=== PATIENT | female | born 1930 | race Caucasian/White ===

== ENCOUNTER 2018-10-04 08:22 | Day surgery (SDC) | payer OTHER ==
--- NOTE | 2018-09-26 09:35 | HP ---
DATE OF ADMISSION: 10/04/2018 DATE OF DICTATION: 09/12/2018 Patient to be admitted to the hospital at [facility] for gallbladder surgery in the near future; date to be determined. HISTORY: This is an 88-year-old woman who for quite some time now has been experiencing intermittent bouts of right upper quadrant pain radiating to her right flank and right back. This has also been associated with nausea and vomiting. Some of the attacks have been associated with significant discomfort. Recent workup by the medical service has included an ultrasound of the abdomen which has demonstrated small stones layering posteriorly in the gallbladder. With that history, she was sent for my evaluation and for consideration for cholecystectomy. On close questioning, the patient consumes rather fatty food on a regular basis. It is difficult for her to ascertain whether fatty foods contribute to her symptoms, but her symptoms are quite frequent. There has been no unintentional weight loss. There has been no history of jaundice. There is no family history of biliary disease. PAST MEDICAL HISTORY: Significant for hypertension, hypercholesterolemia, and diabetes. No known history of heart disease, respiratory or hepatic insufficiency. PAST SURGICAL HISTORY: Nil. ALLERGIES: None known. REGULAR MEDICATIONS: Multiple. Patient cannot recall names. SOCIAL HISTORY: Negative tobacco. Negative alcohol. Patient is quite active for her age. FAMILY HISTORY AND REVIEW OF SYSTEMS: Nil otherwise. PHYSICAL EXAMINATION: Abdomen: Soft, nontender, with no palpable findings. IMPRESSION: Chronic cholecystitis/symptomatic cholelithiasis. PLAN: Spoke at length with patient and her daughter. She is 88 years old, and this intervention does require general anesthetic. Nonetheless, she states that some of the attacks are rather severe, and she has strongly opted to move in the direction of surgical management. In terms of her back discomfort, I cannot be absolutely certain that her complaint of back pain is all related to her biliary tract. Nonetheless, have agreed to proceed with laparoscopic cholecystectomy. Indications, alternatives, possible complications reviewed. Consent obtained. Patient to be seen preoperatively by Dr. Fer Villanueva. Please refer to his notes for those medical details. SHEILA OSORIO M.D. [id number] cc: Fer Villanueva MD
[2018-10-03 14:34] VITALS: BMI 22.3
[2018-10-04] MEDS ORDERED: ERTAPENEM SODIUM 1 GM VIAL ONE (09:21)
[2018-10-04] MEDS ORDERED: PROPOFOL 20 ML ONE (10:20)
[2018-10-04] MEDS ORDERED: ROCURONIUM BROMIDE 50 MG/5 ML VIAL ONE (10:20)
[2018-10-04] MEDS ORDERED: ERTAPENEM SODIUM 1 GM VIAL IVPB ONE (10:31)
[2018-10-04] MEDS ORDERED: LABETALOL HCL 5 MG/1 ML (100MG/20 ML VIAL) ONE (10:44)
[2018-10-04] MEDS ORDERED: GLYCOPYRROLATE 0.2 MG/1 ML VIAL ONE (10:57)
[2018-10-04] MEDS ORDERED: NEOSTIGMINE METHYLSULFATE 0.5 MG/ML - 10 ML MDV ONE (10:57)
[2018-10-04] MEDS: LABETALOL HCL 5 MG/1 ML (100MG/20 ML VIAL) IVPUSH PRN ×3 (11:25→12:35)
[2018-10-04] MEDS ORDERED: MECLIZINE HCL 12.5 MG TABLET PO SCH (13:45)
[2018-10-04] MEDS ORDERED: D5-1/2NS+20 MEQ KCL - 20 MEQ/1,000 ML INFUS.BAG IV SCH (13:45)
[2018-10-04] MEDS ORDERED: ACETAMINOPHEN 325 MG TABLET (FP) PO PRN (13:45)
[2018-10-04] MEDS ORDERED: morphine SULFATE 4 MG/ML VIAL IVPB PRN (13:45)
[2018-10-04] MEDS ORDERED: ONDANSETRON 4 MG/2 ML VIAL IVPUSH PRN (15:46)
[2018-10-04] MEDS ORDERED: LACTATED RINGERS SOLUTION 1,000 ML IV SCH (16:00)
--- NOTE | 2018-10-04 18:12 | OP ---
DATE OF OPERATION: 10/04/2018 PREOPERATIVE DIAGNOSIS: Chronic cholecystitis/cholelithiasis. POSTOPERATIVE DIAGNOSIS: Chronic cholecystitis/cholelithiasis. PROCEDURE: Laparoscopic cholecystectomy. OPERATING SURGEON: Kit Ortiz M.D. STEREO EQUIPMENT INSTALLER: Faraz Elena M.D. ANESTHESIA: Pilar Busch M.D. (general) HISTORY: An 88-year-old woman who presents for laparoscopic removal of her gallbladder as management of symptomatic cholelithiasis. Indications, alternatives, possible complications reviewed. Consent obtained. DESCRIPTION OF PROCEDURE: With the patient in the supine position, under general anesthesia, the abdomen was prepped and draped in sterile fashion using chlorhexidine. A small umbilical incision was made through which a Veress needle was placed into the abdominal cavity. The abdominal cavity was insufflated to an adequate pressure and volume using CO2 gas. Veress needle was removed. An 11-mm trocar port placed through the infraumbilical wound. The camera lens passed through this port, and the intraabdominal cavity visualized. Under direct vision, two 5-mm right anterolateral ports were placed through which clamps were passed to maintain traction on the gallbladder and aid in the dissection. An 11-mm port was placed in the epigastrium, through which the operating instruments were passed. Limited exploration of the abdomen revealed no significant findings other than some adhesions about the gallbladder. These were taken down under direct vision, exposing the entire gallbladder and hepatoduodenal ligament. The peritoneum and hepatoduodenal ligament was incised. The cystic duct was identified. The cystic duct/bile duct junction noted. The cystic duct was clipped proximally and distally and divided. The adjacent artery was managed similarly. The gallbladder was then removed from the gallbladder bed, lysing its attachment to the liver. It was ultimately freed. Adequate hemostasis was secured at the level of the liver bed. All ports were removed under direct vision. No bleeding identified. Ultimately, the gallbladder was passed and delivered through the infraumbilical wound without difficulty. The pneumoperitoneum was allowed to escape. The fascia at the infraumbilical port site was closed using interrupted 0 Vicryl sutures. All skin wounds were closed using subcuticular 4-0 Biosyn sutures. Needle, instrument counts were correct. Estimated blood loss minimal. Specimen gallbladder. Drains none. Patient tolerated procedure. Procedure was terminated. Debbie DAVIS/[id number] MTDD
[2018-10-04] MEDS: INSULIN SLIDING SCALE (NOVOLOG) 1 VIAL SQ SCH ×2 (18:39→21:41)
[2018-10-04] MEDS ORDERED: INSULIN (NOVOLOG) ASPART 100 UNITS/ML 10ML VIAL ONE (18:41)
[2018-10-04] MEDS ORDERED: ATORVASTATIN CA 20 MG TABLET (FP) PO SCH (22:00)
[2018-10-05] MEDS ORDERED: MECLIZINE HCL 12.5 MG TABLET PO PRN (02:47)
[2018-10-05] MEDS: INSULIN SLIDING SCALE (NOVOLOG) 1 VIAL SQ SCH ×2 (06:18→11:18)
[2018-10-05] MEDS ORDERED: INSULIN (NOVOLOG MIX 70/30) 100 UNITS/ML MDV SQ SCH (07:00)
[2018-10-05] MEDS ORDERED: MIDAZOLAM HCL 2 MG/2 ML SINGLE DOSE VIAL ONE (08:39)
--- NOTE | 2018-10-05 09:21 | PN ---
Progress Note (short form) - Note Progress Note: ANESTHESIOLOGY POST-OP CHECK 88F s/p laparoscopic cholecystectomy under general anesthesia, POD #1. No acute complaints, no acute events. [employer] phone not working. Vital Signs Temperature 98.9 F 10/05/18 06:58 Pulse Rate 95 H 10/05/18 06:58 Respiratory Rate 21 H 10/05/18 06:58 Blood Pressure 142/63 10/05/18 06:58 O2 Sat by Pulse Oximetry (%) 97 10/04/18 17:43 Active Medications Acetaminophen (Tylenol -) 650 mg PO Q4H PRN PRN Reason: FEVER Atorvastatin Calcium (Lipitor -) 20 mg PO HS [facility] Last Admin: 10/04/18 21:42 Dose: 20 mg Enoxaparin Sodium (Lovenox -) 40 mg SQ DAILY [facility] Potassium Chloride/Dextrose/Sod Cl (D5-1/2ns+20 Meq Kcl -) 20 meq in 1,000 mls @ 83 mls/hr IV ASDIR [facility] Last Admin: 10/04/18 15:00 Dose: 0 mls Lactated Ringer's (Lactated Ringers Solution) 1,000 mls @ 75 mls/hr IV ASDIR [facility] Last Admin: 10/04/18 19:45 Dose: 75 mls/hr Insulin Aspart (Novolog Mix 70/30 Vial) 30 units SQ BIDAC [facility] Last Admin: 10/05/18 06:18 Dose: 30 units Insulin Aspart (Novolog Vial Sliding Scale -) 1 vial SQ ACHS [facility]; Protocol Last Admin: 10/05/18 06:18 Dose: 2 units Labetalol HCl (Normodyne Injection -) 10 mg IVPUSH [id number] PRN PRN Reason: HYPERTENSION Last Admin: 10/04/18 12:35 Dose: 10 mg Lisinopril (Prinivil) 2.5 mg PO DAILY [facility] Meclizine HCl (Antivert -) 12.5 mg PO Q8H PRN PRN Reason: VERTIGO Montelukast Sodium (Singulair -) 10 mg PO HS [facility] Morphine Sulfate (Morphine Sulfate) 4 mg IVPB Q3H PRN PRN Reason: PAIN LEVEL 7 - 10 Last Admin: 10/04/18 18:39 Dose: 4 mg Ondansetron HCl (Zofran Injection) 4 mg IVPUSH Q6H PRN PRN Reason: NAUSEA AND/OR VOMITING Pantoprazole Sodium (Protonix Iv) 40 mg IVPUSH DAILY [facility] Gen: Awake, alert, NAD No apparent anesthesia complications. -Pain controlled -continue antiemetics PRN -encourage ambulation -Continue management as per primary team.
[2018-10-05] MEDS ORDERED: LISINOPRIL 5 MG TABLET (FP) PO SCH (10:00)
[2018-10-05] MEDS ORDERED: ENOXAPARIN NA (PORCINE) 40 MG/0.4 ML DISP.SYRIN SQ SCH (10:00)
[2018-10-05] MEDS ORDERED: PANTOPRAZOLE SODIUM 40 MG VIAL IVPUSH SCH (10:00)
--- NOTE | 2018-10-05 10:57 | PN ---
Progress Note (short form) - Note Progress Note: surgery pt had one fever this morning per nurse. ambulating, voiding, tolerating diet. fever likely from atelectasis. if no further fever will d/c home this evening.
[2018-10-05 14:00] VITALS: BP 124/49; PULSE 93; TEMP 99.5
[2018-10-05] MEDS ORDERED: MONTELUKAST NA 10 MG TABLET PO SCH (22:00)
--- NOTE | 2018-10-09 10:13 | PATH ---
Surgical Pathology Report Patient Name: [facility]. Rec. #: [id number] /Age/Gender: 1930 (Age: 88) / F Account: [id number] Location: AMBULATORY SURG Taken: 10/04/2018 Received: 10/04/2018 Reported: 10/09/2018 Physicians: Kit Ortiz M.D. Specimen(s) Received GALLBLADDER Clinical History Calculus of gallbladder with acute cholecystectomy Final Diagnosis GALLBLADDER, LAPAROSCOPIC CHOLECYSTECTOMY: CHRONIC CHOLECYSTITIS, POLYPOID CHRONICALLY INFLAMED GALLBLADDER MUCOSA CONSISTENT WITH INFLAMMATORY POLYP, AND CHOLELITHIASIS. Electronically Signed Evelyne Titus M.D. Gross Description Received in formalin, labeled "gallbladder," is a 9.0 x 3.0 x 3.0 cm. gallbladder with a 0.2 cm. in length portion of cystic duct attached. The outer surface is koch green and varies from smooth to shaggy. The lumen contains green, tenacious bile. There are no choleliths identified. The mucosa displays a 0.2 cm in greatest dimension polypoid lesion at 4 cm distal to the cystic duct margin. The wall of the gallbladder measures 0.1 cm. in thickness. Batch Freezer Operator sections including the polyp are submitted in one cassette. 10/05/201810/05/2018
== END 2018-10-05 18:19 | disposition home or self-care (01) ==
LOC: JASUSAT 08:22 → J6S 18:24 → JASUSAT 10-05 18:19
PROVIDERS: ATTEND Surgery
PROC: 0FT44ZZ Resection of Gallbladder, Percutaneous Endoscopic Approach (ICD-10-PCS; principal; 2018-10-04 10:00)
DX: K80.10 Calculus of gallbladder with chronic cholecystitis without obstruction (principal)
CPT/HCPCS: 82962; 86850; 86900; 86901; 88304-TC; 94760

== ENCOUNTER 2019-04-12 15:15 | Inpatient (IN) | payer OTHER ==
[2019-04-12 15:34] VITALS: BMI 23.9
--- NOTE | 2019-04-12 15:36 | PDOC ---
Rapid Medical Evaluation Chief Complaint: Pain Time Seen by Provider: 04/12/19 15:30 Medical Evaluation: Allergies Allergy/AdvReac Type Severity Reaction Status Date / Time No Known Allergies Allergy Verified 04/12/19 15:29 04/12/19 15:31 I have performed a brief in-person evaluation of this patient. The patient presents with a chief complaint of: RU/LQ abd pain , fevers, Pertinent physical exam findings: pale, dizzy, + headache I have ordered the following: labs, , Ua The patient will proceed to the ED for further evaluation. 04/12/19 15:35 Discharge Disposition - Diagnosis Weakness - Referrals - Patient Instructions - Post Discharge Activity
[2019-04-12] MEDS ORDERED: ACETAMINOPHEN 1000 MG/100 ML VIAL (NON FORMULARY) IVPB ONE (16:27)
--- NOTE | 2019-04-12 17:06 | PDOC ---
*Physical Exam - Vital Signs Last Vital Signs Temp Pulse Resp BP Pulse Ox 99 F 91 H 18 151/71 95 04/12/19 15:29 04/12/19 15:29 04/12/19 15:29 04/12/19 15:29 04/12/19 15:29 ED Treatment Course - LABORATORY CBC & Chemistry Diagram: 04/13/19 12:25 04/13/19 12:25 Medical Decision Making - Medical Decision Making 04/12/19 17:06 The patient was seen and evaluated in conjunction with YOHANA Christian under my direct supervision, ancillary studies were reviewed I agree with the plan as outlined by YOHANA Christian . *DC/Admit/Observation/Transfer Diagnosis at time of Disposition: Hyperglycemia due to type 2 diabetes mellitus, Dehydration, Pre-syncope, Hypertension - Discharge Dispostion Condition at time of disposition: Fair - Referrals - Patient Instructions - Post Discharge Activity
[2019-04-12] MEDS ORDERED: SODIUM CHLORIDE 1,000 ML IV STA (17:46)
[2019-04-12 17:47] LABS: BASO % 0.5 % (0-2.0); EOS % 0.9 % (0-4.5); HEMATOCRIT 35.3 % (32.4-45.2); HEMOGLOBIN 12.1 GM/dL (10.7-15.3); LYMPH % 23.7 % (8-40); MCH 32.1 pg (25.7-33.7); MCHC 34.3 g/dl (32.0-36.0); MEAN CELL VOLUME 93.5 fl (80-96); MEAN PLT VOLUME 8.9 fl (7.5-11.1); MONO % 6.6 % (3.8-10.2); NEUT % 68.3 % (42.8-82.8); PLATELET COUNT 251 K/MM3 (134-434); RBC 3.77 M/mm3 (3.60-5.2); RDW 13.3 % (11.6-15.6); WHITE BLOOD COUNT 7.5 K/mm3 (4.0-10.0)
--- NOTE | 2019-04-12 17:51 | PDOC ---
History of Present Illness - General Chief Complaint: Pain Stated Complaint: BACK PAIN Time Seen by Provider: 04/12/19 15:30 History Source: Patient, Family Exam Limitations: Language Barrier Past History - Past Medical History Allergies/Adverse Reactions: Allergies Allergy/AdvReac Type Severity Reaction Status Date / Time No Known Allergies Allergy Verified 04/12/19 15:29 Home Medications: Ambulatory Orders Atorvastatin Ca [Lipitor] 20 mg PO HS 10/04/18 Insulin (Novolog 70/30) [Novolog Mix 70/30 Vial] 20 ml SQ BID 10/04/18 Lisinopril [Zestril] 2.5 mg PO DAILY 10/04/18 Meclizine HCl 12.5 mg PO DAILY 10/04/18 Montelukast Sodium [Singulair] 10 mg PO DAILY 10/04/18 Cetirizine HCl 10 mg PO DAILY 04/12/19 Anemia: No Asthma: No Cancer: No Cardiac Disorders: No CVA: No COPD: No CHF: No Dementia: No Diabetes: Yes GI Disorders: No Disorders: No HTN: Yes Hypercholesterolemia: Yes Liver Disease: No Seizures: No Thyroid Disease: No - Immunization History Td Vaccination: Yes TDAP Vaccination: No Immunization Up to Date: Yes - Suicide/Smoking/Psychosocial Hx Smoking History: Never smoked Have you smoked in the past 12 months: No Hx Alcohol Use: No Drug/Substance Use Hx: No Substance Use Type: None Hx Substance Use Treatment: No *Physical Exam - Vital Signs Last Vital Signs Temp Pulse Resp BP Pulse Ox 99 F 91 H 18 151/71 95 04/12/19 15:29 04/12/19 15:29 04/12/19 15:29 04/12/19 15:29 04/12/19 15:29 - Physical Exam General Appearance: Yes: Other (appears pale). No: Apparent Distress Respiratory/Chest: positive: Lungs Clear, Normal Breath Sounds. negative: Respiratory Distress Cardiovascular: positive: Regular Rhythm, Regular Rate, S1, S2. negative: Murmur Gastrointestinal/Abdominal: positive: Normal Bowel Sounds, Tender (mild TTP along RLQ), Soft. negative: Distended, Guarding, Rebound, Hernia, Mass Musculoskeletal: negative: CVA Tenderness Neurologic: positive: Fully Oriented, Alert, Normal Mood/Affect ED Treatment Course - LABORATORY CBC & Chemistry Diagram: 04/12/19 16:14 04/12/19 16:14 - Medications Given in the ED: ED Medications Discontinued Medications Generic Name Dose Route Start Last Admin Trade Name Yony PRN Reason Stop Dose Admin Acetaminophen 1,000 mg 04/12/19 16:27 04/12/19 17:13 Ofirmev Injection - IVPB 04/12/19 16:28 1,000 mg ONCE ONE Administration Medical Decision Making - Medical Decision Making 89 y/o F hx of DM (on insulin), HTN, HLD, cholecystectomy 09/2018, hysterectomy (several years ago) presents with NBNB emesis x 1 week along with watery diarrhea x 3 days (states diarrhea resolved yesterday). Per daughter, patient has just been lying in bed for the past week and just recently told her about her symptoms. Also mentions having dysuria x 2-3 weeks. Patient also with R sided abdominal pain since her cholecystectomy, but never followed up with her surgeon. States the pain got worse the past 2-3 months. Last BM was yesterday. Denies fever, URI sxs, sob, cp, hematuria, black/bloody stools. EKG: NSR at 78 bpm, slight T wave inversion aVL, no ectopy Consider infection, electrolyte abnormalities, possible SBO, ?appendicitis Plan: Labs, fingerstick, IV Tylenol, CT A/P 04/12/19 17:47 Laboratory Tests 04/12/19 16:14 Anion Gap 5 L BUN 35.7 H Creatinine 1.4 H Random Glucose 317 H* FS shows glucose 308, patient was started on IVF Chemistry returned with glucose 317, no anion gap BUN/Cr elevated - likely pre-renal in nature (dehydration); prior labs were from 2014, which showed higher BUN/Cr (patient was admitted that visit for PNA) Will send for CT A/P to r/o acute pathology 04/12/19 18:53 Patient pending results of CT A/P Signed out to JESSIE Schneider 04/12/19 19:09 *DC/Admit/Observation/Transfer Diagnosis at time of Disposition: Dehydration Hyperglycemia due to type 2 diabetes mellitus Qualifiers: Diabetes mellitus long-term insulin use: unspecified long-term insulin use status Qualified Code(s): E11.65 - Type 2 diabetes mellitus with hyperglycemia - Referrals Referrals: Kali Villanueva MD [Primary Care Provider] - - Patient Instructions - Post Discharge Activity
[2019-04-12 18:04] LABS: EPI CELLS 5.9 /HPF (0-5/HPF); HYALINE CASTS 8 /lpf (0-8); URINE APPEARANCE CLEAR; URINE BACTERIA 520.6 /hpf (NEGATIVE); URINE BILIRUBIN NEGATIVE (NEGATIVE); URINE COLOR YELLOW; URINE GLUCOSE (UA) 1+ (NEGATIVE); URINE KETONE TRACE (NEGATIVE); URINE LEUK ESTERASE TRACE (NEGATIVE); URINE NITRITE NEGATIVE (NEGATIVE); URINE PROTEIN 1+ (NEGATIVE); URINE RBC 1 /hpf (0-4); URINE WBC 9 /hpf (0-5)
[2019-04-12 18:26] LABS: ALK PHOS 113 U/L (45-117); ANION GAP 5 MMOL/L (8-16); BILIRUBIN,TOTAL 0.5 mg/dL (0.2-1); BLOOD UREA NITROGEN 35.7 mg/dL (7-18); CALCIUM 8.9 mg/dL (8.5-10.1); CHLORIDE 114 mmol/L (98-107); CO2 23 mmol/L (21-32); CREATININE 1.4 mg/dL (0.55-1.3); LIPASE 164 U/L (73-393); POTASSIUM 4.5 mmol/L (3.5-5.1); SGOT/AST 13 U/L (15-37); SGPT/ALT 22 U/L (13-61); SODIUM 141 mmol/L (136-145)
[2019-04-12 18:37] LABS: GLUCOSE,RANDOM 317 mg/dL (74-106)
--- NOTE | 2019-04-12 19:20 | PDOC ---
*Physical Exam - Vital Signs Last Vital Signs Temp Pulse Resp BP Pulse Ox 99 F 91 H 18 151/71 98 04/12/19 15:29 04/12/19 15:29 04/12/19 15:29 04/12/19 15:29 04/12/19 18:04 - Physical Exam General Appearance: Yes: Appropriately Dressed. No: Apparent Distress HEENT: positive: Normal ENT Inspection Neck: positive: Trachea midline Respiratory/Chest: positive: Lungs Clear, Normal Breath Sounds. negative: Respiratory Distress, Accessory Muscle Use Cardiovascular: positive: Regular Rhythm, Regular Rate. negative: Murmur Gastrointestinal/Abdominal: positive: Normal Bowel Sounds, Tender (RLQ), Soft Musculoskeletal: positive: Normal Inspection. negative: CVA Tenderness ED Treatment Course - LABORATORY CBC & Chemistry Diagram: 04/13/19 12:25 04/13/19 12:25 - ADDITIONAL ORDERS Additional order review: Laboratory Results 04/12/19 04/12/19 04/12/19 17:45 16:15 16:14 Sodium Potassium Chloride Carbon Dioxide Anion Gap BUN Creatinine Est GFR (CKD-EPI)AfAm Est GFR (CKD-EPI)NonAf POC Glucometer 308 Random Glucose Calcium Magnesium 1.8 Total Bilirubin AST ALT Alkaline Phosphatase Troponin I Total Protein Albumin Lipase Urine Color Yellow Urine Appearance Clear Urine pH 5.0 Ur Specific Garfield 1.022 Urine Protein 1+ H Urine Glucose (UA) 1+ H Urine Ketones Trace H Urine Blood Negative Urine Nitrite Negative Urine Bilirubin Negative Urine Urobilinogen 1.0 Ur Leukocyte Esterase Trace Urine WBC (Auto) 9 Urine RBC (Auto) 1 Urine Casts (Auto) 8 U Epithel Cells (Auto) 5.9 Urine Bacteria (Auto) 520.6 04/12/19 16:14 Sodium 141 Potassium 4.5 Chloride 114 H Carbon Dioxide 23 Anion Gap 5 L BUN 35.7 H Creatinine 1.4 H Est GFR (CKD-EPI)AfAm 38.78 Est GFR (CKD-EPI)NonAf 33.46 POC Glucometer Random Glucose 317 H* Calcium 8.9 Magnesium Total Bilirubin 0.5 AST 13 L ALT 22 Alkaline Phosphatase 113 Troponin I < 0.02 Total Protein 7.0 Albumin 4.0 Lipase 164 Urine Color Urine Appearance Urine pH Ur Specific Garfield Urine Protein Urine Glucose (UA) Urine Ketones Urine Blood Urine Nitrite Urine Bilirubin Urine Urobilinogen Ur Leukocyte Esterase Urine WBC (Auto) Urine RBC (Auto) Urine Casts (Auto) U Epithel Cells (Auto) Urine Bacteria (Auto) 04/12/19 04/12/19 17:45 16:14 RBC 3.77 MCV 93.5 MCHC 34.3 RDW 13.3 MPV 8.9 Neutrophils % 68.3 D Lymphocytes % 23.7 D Monocytes % 6.6 D Eosinophils % 0.9 D Basophils % 0.5 D POC Glucometer 308 - Medications Given in the ED: ED Medications Discontinued Medications Generic Name Dose Route Start Last Admin Trade Name Yony PRN Reason Stop Dose Admin Acetaminophen 1,000 mg 04/12/19 16:27 04/12/19 17:13 Ofirmev Injection - IVPB 04/12/19 16:28 1,000 mg ONCE ONE Administration Sodium Chloride 1,000 mls @ 1,000 mls/hr 04/12/19 17:46 04/12/19 18:03 Normal Saline - IV 04/12/19 18:45 1,000 mls/hr ASDIR STA Administration Progress Note - Progress Note Progress Note: Received sign out from YOHANA Villela Briefly this is an 89-year-old female with past medical history of and some dependent diabetes, hypertension, hyperlipidemia, cholecystectomy 10/03, hysterectomy phone week of vomiting and diarrhea for 3 days which resolved yesterday. Patient also having dysuria for 2-3 weeks right-sided abdominal pain since surgery. Upon arrival patient had fingerstick- 308. Vital signs notable for heart rate of 91 Labs show a mild VALERIA-BUN 35.7 creatinine 1.4. Glucose 317. Anion gap of 5. Cardiac enzymes are within normal limits EKG is sinus rhythm with rate of 78. Normal intervals present. TWI- aVL UA notable for trace leukoesterase with 9 wbc's and high power field. ? UTI given 2 weeks of dysuria. Defer treatment at this time as pt is afebrile. CTAP performed and read is pending. Medical Decision Making - Medical Decision Making 04/12/19 19:51 Called to the bedside patient's RN this patient is complaining of occipital headache noted to have a systolic blood pressure greater than 200. Med reconciliation performed patient noted to be taking lisinopril 2.5 mg daily which she took this morning. Daughter states she was found sitting on the floor after a fall but denied head trauma. No signs of head trauma upon examination. Patient's neurologic exam is within normal limits. Patient is diabetic with recent blood sugar of 300s I will give 1 dose of labetalol IV push for blood pressure control as well as an additional dose of lisinopril. 04/12/19 19:52 04/12/19 20:26 CT scan is read by Dr. King: No definite CT findings of acute pathology identified. We will erythematous with mildly increased density diffusely which could've been the basis of etiologies such as hemachromatosis or amiodarone medication. Clinical correlation is suggested. Status post cholecystectomy The appendix appears unremarkable. I will contact the patient's primary doctor for admission. 04/12/19 20:47 Case has been discussed with Dr. Armas who accepts patient to telemetry observation. Patient's blood pressures come down to 170 after receiving oral antihypertensives. Beta blockers held. Repeat BGM and troponin ordered. *DC/Admit/Observation/Transfer Diagnosis at time of Disposition: Dehydration, Pre-syncope, Hypertension Hyperglycemia due to type 2 diabetes mellitus Qualifiers: Diabetes mellitus watermelon inspector insulin use: unspecified retirement insulin use status Qualified Code(s): E11.65 - Type 2 diabetes mellitus with hyperglycemia - Discharge Dispostion Condition at time of disposition: Fair Decision to Admit order: Yes - Referrals - Patient Instructions - Post Discharge Activity
[2019-04-12] MEDS ORDERED: LABETALOL HCL 5 MG/1 ML (100MG/20 ML VIAL) IVPUSH ONE (19:51)
[2019-04-12] MEDS ORDERED: LISINOPRIL 5 MG TABLET (FP) PO ONE (19:52)
[2019-04-12] MEDS ORDERED: LISINOPRIL 5 MG TABLET (FP) ONE (20:00)
[2019-04-12] MEDS ORDERED: METOPROLOL TARTRATE 5 MG/5 ML VIAL ONE (20:16)
[2019-04-12] MEDS ORDERED: METOPROLOL TARTRATE 5 MG/5 ML VIAL IVPUSH ONE (20:18)
--- NOTE | 2019-04-13 10:34 | HP ---
Admitting History and Physical - Admission Chief Complaint: pt came to my offivce c/o loose bm 3 days bloated n/v 1 day. sent er admitted under diff dr sharon subramanianfh i gave her my prescription to avoid that ? no orders ever given last pm found out she is in er this morning History Source: Patient, Family Member Limitations to Obtaining History: Language Barrier - Past Medical History Cardiovascular: Yes: HTN, Hyperlipdemia Pulmonary: Yes: COPD Gastrointestinal: Yes: Other (lap choly) Musculoskeletal: Yes: Bursitis, Osteoarthritis Endocrine: Yes: Diabetes Mellitus - Past Surgical History Past Surgical History: Yes: Cholecystectomy - Smoking History Smoking history: Never smoked Have you smoked in the past 12 months: No - Alcohol/Substance Use Hx Alcohol Use: No - Social History Usual Living Arrangement: Yes: With Child ADL: Independent History of Recent Travel: No Home Medications - Allergies Allergies/Adverse Reactions: Allergies Allergy/AdvReac Type Severity Reaction Status Date / Time No Known Allergies Allergy Verified 04/12/19 15:29 - Home Medications Home Medications: Ambulatory Orders Atorvastatin Ca [Lipitor] 20 mg PO HS 10/04/18 Insulin (Novolog 70/30) [Novolog Mix 70/30 Vial] 20 ml SQ BID 10/04/18 Lisinopril [Zestril] 2.5 mg PO DAILY 10/04/18 Meclizine HCl 12.5 mg PO DAILY 10/04/18 Montelukast Sodium [Singulair] 10 mg PO DAILY 10/04/18 Cetirizine HCl 10 mg PO DAILY 04/12/19 Family Disease History - Family Disease History Family History: Unremarkable Family Disease History: Diabetes: Brother Review of Systems - Review of Systems Constitutional: reports: Other (diarea) Eyes: reports: No Symptoms HENT: reports: No Symptoms Neck: reports: No Symptoms Cardiovascular: reports: No Symptoms Respiratory: reports: No Symptoms Gastrointestinal: reports: Bloating, Nausea, Vomiting, Other (diarea) Breasts: reports: No Symptoms Reported Musculoskeletal: reports: No Symptoms Integumentary: reports: No Symptoms Neurological: reports: No Symptoms Endocrine: reports: No Symptoms Hematology/Lymphatic: reports: No Symptoms Psychiatric: reports: No Symptoms Physical Examination Vital Signs: Vital Signs Temperature 97.3 F L 04/13/19 03:54 Pulse Rate 66 04/13/19 03:54 Respiratory Rate 16 04/13/19 03:54 Blood Pressure 169/72 04/13/19 03:54 O2 Sat by Pulse Oximetry (%) 96 04/13/19 03:54 Constitutional: Yes: Anxious Eyes: Yes: WNL HENT: Yes: WNL Neck: Yes: WNL Cardiovascular: Yes: WNL Respiratory: Yes: WNL Gastrointestinal: Yes: Distention, Hyperactive Bowel Sounds ...Rectal Exam: Yes: Deferred Renal/: Yes: WNL Breast(s): Yes: WNL Musculoskeletal: Yes: WNL Extremities: Yes: WNL Edema: No Peripheral Pulses WNL: Yes Integumentary: Yes: WNL Neurological: Yes: WNL ...Motor Strength: WNL Psychiatric: Yes: WNL Labs: CBC, BMP 04/12/19 16:14 04/12/19 16:14 Assessment/Plan flagly iv gi id to see pt npo amylase lipase levels iv fluids [id number] /.25 will write mrdes today
[2019-04-13] MEDS ORDERED: DEXTROSE 5%-0.45% SALINE 1,000 ML IV SCH (11:00)
[2019-04-13] MEDS ORDERED: ACETAMINOPHEN 1000 MG/100 ML VIAL (NON FORMULARY) IVPB PRN (11:01)
[2019-04-13] MEDS ORDERED: ACETAMINOPHEN INJECTION 100 ML IVPB ONE (11:39)
--- NOTE | 2019-04-13 11:54 | EKG ---
Test Reason : Blood Pressure : / mmHG Vent. Rate : 078 BPM Atrial Rate : 078 BPM P-R Int : 166 ms QRS Dur : 070 ms QT Int : 380 ms P-R-T Axes : 061 -17 099 degrees QTc Int : 433 ms NORMAL SINUS RHYTHM SEPTAL INFARCT , AGE UNDETERMINED NONSPECIFIC ST ABNORMALITY WHEN COMPARED WITH ECG OF 16-FEB-2015 09:10, SEPTAL INFARCT IS NOW PRESENT Confirmed by GREER BOND MD ([id number]) on 04/13/2019 11:54:09 AM Referred By: Confirmed By:GREER BOND MD
[2019-04-13] MEDS ORDERED: ONDANSETRON 4 MG TABLET PO ONE (12:35)
[2019-04-13] MEDS ORDERED: LISINOPRIL 5 MG TABLET (FP) PO SCH (12:38)
[2019-04-13 12:45] LABS: BASO % 0.6 % (0-2.0); EOS % 2.8 % (0-4.5); HEMATOCRIT 32.7 % (32.4-45.2); HEMOGLOBIN 11.2 GM/dL (10.7-15.3); LYMPH % 26.1 % (8-40); MCH 31.9 pg (25.7-33.7); MCHC 34.3 g/dl (32.0-36.0); MEAN CELL VOLUME 93.1 fl (80-96); MEAN PLT VOLUME 8.6 fl (7.5-11.1); MONO % 7.3 % (3.8-10.2); NEUT % 63.2 % (42.8-82.8); PLATELET COUNT 220 K/MM3 (134-434); RBC 3.52 M/mm3 (3.60-5.2); RDW 13.3 % (11.6-15.6); WHITE BLOOD COUNT 6.4 K/mm3 (4.0-10.0)
[2019-04-13 13:12] LABS: ALBUMIN 3.4 g/dl (3.4-5.0); BILIRUBIN,TOTAL 0.6 mg/dL (0.2-1); BLOOD UREA NITROGEN 24.9 mg/dL (7-18); CALCIUM 8.5 mg/dL (8.5-10.1); CREATININE 1.1 mg/dL (0.55-1.3); POTASSIUM 4.5 mmol/L (3.5-5.1); TOT PROT 6.2 g/dl (6.4-8.2)
[2019-04-13] MEDS ORDERED: ONDANSETRON *ODT* 4 MG TABLET ONE (13:48)
[2019-04-13] MEDS ORDERED: LISINOPRIL 5 MG TABLET (FP) ONE (13:49)
[2019-04-13] MEDS ORDERED: ACETAMINOPHEN 325 MG TABLET (FP) PO PRN (15:28)
[2019-04-13] MEDS: metoPROLOL SUCCINATE 25 MG TAB.SR.24H (FP) PO SCH (16:09)
[2019-04-13] MEDS: SODIUM CHLORIDE 0.45% 1,000 ML IV SCH (16:09)
--- NOTE | 2019-04-13 16:30 | PN ---
Progress Note (short form) - Note Progress Note: ID CONSULT DICTATED ACUTE GASTROENTERITIS DEHYDRATION OBTAIN BC, STOOL STUDIES OBSERVE OFF ANTIBIOTICS
[2019-04-13] MEDS: INSULIN (NOVOLOG MIX 70/30) 100 UNITS/ML MDV SQ SCH (16:43)
--- NOTE | 2019-04-13 20:31 | CONS ---
DATE OF CONSULTATION: DATE OF DICTATION: 04/13/2019 INFECTIOUS DISEASE CONSULTATION HISTORY OF PRESENT ILLNESS: The patient is an 89-year-old female who is evaluated for acute gastroenteritis. History was obtained from the chart, as she is [place]ian speaking. She lives at home. The patient had a cholecystectomy in September of 2018. Since that time she has had chronic right sided abdominal pain. Over the past several days, she has had episodes of nonbloody, nonbilious nausea/vomiting and developed nonbloody diarrhea. In addition, the patient complained of some dysuria. The patient was profoundly weakened and bedbound for approximately 1 week. She was taken to the emergency room where she was noted to be hypertensive. She is now on the telemetry unit. At the present time, she is awake and alert. She is in no acute distress. No diarrhea has been reported by the staff, no nausea or vomiting. She is afebrile with a normal white blood cell count. PAST MEDICAL HISTORY: Positive for diabetes mellitus, hypertension, hyperlipidemia. PAST SURGICAL HISTORY: Status post cholecystectomy and hysterectomy. ALLERGIES: No known allergies. MEDICATION: Tylenol, aspirin, Flagyl, labetalol, lisinopril, metoprolol. SOCIAL HISTORY: She lives in the community. Nonsmoker, nondrinker. LABORATORY DATA: White count 6.4, hematocrit 32.7, platelet count 226, BUN 24, creatinine 1.1, urinalysis 9 white cells, liver enzymes normal. A CAT scan of the abdomen and pelvis is negative for acute pathology. PHYSICAL EXAMINATION: General: On exam, she is awake and alert, she is seated in bed, she is in no acute distress, not acutely toxic appearing. Vital signs: Temperature 97.5, blood pressure 163/76, pulse 75 regular, respirations 16 per minute. HEENT: Sclerae anicteric. Cardiovascular: Heart sounds S1, S2. Lungs: Clear. Abdomen: Soft. There is some mild right sided abdominal tenderness to deep palpation. No rebound or rigidity. Extremities: Negative for edema. IMPRESSION: 1. Acute gastroenteritis. 2. Dehydration. 3. Chronic abdominal pain syndrome status post cholecystectomy. Will obtain blood cultures and stool studies, GI evaluation, observe off antibiotic therapy. Thank you for the kind referral. GREER OLIVO M.D. [id number]
[2019-04-14] MEDS: metoPROLOL SUCCINATE 25 MG TAB.SR.24H (FP) PO SCH (08:59)
[2019-04-14] MEDS: ASPIRIN COATED 81 MG TABLET.EC PO SCH (08:59)
[2019-04-14] MEDS: INSULIN (NOVOLOG MIX 70/30) 100 UNITS/ML MDV SQ SCH ×2 (08:59→16:58)
[2019-04-14] MEDS: LISINOPRIL 5 MG TABLET (FP) PO SCH (08:59)
[2019-04-14] MEDS ORDERED: MECLIZINE HCL 12.5 MG TABLET PO PRN (12:28)
--- NOTE | 2019-04-14 12:28 | PN ---
Progress Note, Physician Chief Complaint: apetite less today c/o of dizziness - Current Medication List Current Medications: Active Medications Acetaminophen (Ofirmev Injection -) 1,000 mg IVPB Q6H PRN PRN Reason: ELEVATED BLOOD SUGAR Stop: 04/17/19 11:00 Last Admin: 04/13/19 11:52 Dose: 1,000 mg Acetaminophen (Tylenol -) 650 mg PO Q6H PRN PRN Reason: PAIN GREATER THAN 5 (6-10) Aspirin (Ecotrin -) 81 mg PO DAILY [facility] Last Admin: 04/14/19 08:59 Dose: 81 mg Metronidazole (Flagyl 500mg Premixed Ivpb -) 500 mg in 100 mls @ 100 mls/hr IVPB Q8H-IV [facility] Stop: 04/17/19 23:59 Last Admin: 04/14/19 08:59 Dose: 100 mls/hr Sodium Chloride (1/2 Normal Saline) 1,000 mls @ 50 mls/hr IV ASDIR [facility] Last Admin: 04/13/19 16:09 Dose: 50 mls/hr Insulin Aspart (Novolog Mix 70/30 Vial) 25 units SQ BIDAC [facility] Last Admin: 04/14/19 08:59 Dose: 25 units Lisinopril (Prinivil) 5 mg PO DAILY [facility] Last Admin: 04/14/19 08:59 Dose: 5 mg Metoprolol Succinate (Toprol Xl -) 25 mg PO DAILY [facility] Last Admin: 04/14/19 08:59 Dose: 25 mg - Objective Vital Signs: Vital Signs Temperature 97.9 F 04/14/19 08:41 Pulse Rate 67 04/14/19 08:41 Respiratory Rate 20 04/14/19 08:41 Blood Pressure 134/63 04/14/19 08:41 O2 Sat by Pulse Oximetry (%) 96 04/13/19 21:00 Constitutional: Yes: Well Nourished Eyes: Yes: WNL HENT: Yes: WNL Neck: Yes: WNL Gastrointestinal: Yes: Hyperactive Bowel Sounds ...Rectal Exam: Yes: Deferred Genitourinary: Yes: WNL Breast(s): Yes: WNL Musculoskeletal: Yes: WNL Extremities: Yes: WNL Edema: No Peripheral Pulses WNL: Yes Peripheral Pulses: Left Radial: 0 Integumentary: Yes: WNL Neurological: Yes: Unsteady Gait, Weakness ...Motor Strength: WNL Labs: CBC, BMP 04/13/19 12:25 04/13/19 12:25 Assessment/Plan antivert po trial for dizziness oob p/t tx ? d/c tuesday
[2019-04-14 13:01] LABS: BASO % 0.7 % (0-2.0); EOS % 3.3 % (0-4.5); HEMATOCRIT 32.1 % (32.4-45.2); LYMPH % 28.9 % (8-40); MCH 32.2 pg (25.7-33.7); MCHC 34.2 g/dl (32.0-36.0); MEAN CELL VOLUME 94.2 fl (80-96); MEAN PLT VOLUME 8.7 fl (7.5-11.1); MONO % 7.7 % (3.8-10.2); NEUT % 59.4 % (42.8-82.8); RDW 13.7 % (11.6-15.6); WHITE BLOOD COUNT 6.9 K/mm3 (4.0-10.0)
[2019-04-14 13:12] LABS: PLATELET COUNT 214 K/MM3 (134-434)
[2019-04-14 13:33] LABS: BLOOD UREA NITROGEN 24.2 mg/dL (7-18); CALCIUM 8.6 mg/dL (8.5-10.1); POTASSIUM 4.1 mmol/L (3.5-5.1)
[2019-04-14] MEDS: SODIUM CHLORIDE 0.45% 1,000 ML IV SCH (16:58)
[2019-04-15 06:44] LABS: BASO % 0.8 % (0-2.0); EOS % 4.1 % (0-4.5); HEMATOCRIT 30.5 % (32.4-45.2); HEMOGLOBIN 10.6 GM/dL (10.7-15.3); LYMPH % 39.5 % (8-40); MCH 32.5 pg (25.7-33.7); MCHC 34.8 g/dl (32.0-36.0); MEAN CELL VOLUME 93.6 fl (80-96); MEAN PLT VOLUME 8.9 fl (7.5-11.1); MONO % 9.4 % (3.8-10.2); NEUT % 46.2 % (42.8-82.8); PLATELET COUNT 202 K/MM3 (134-434); RBC 3.26 M/mm3 (3.60-5.2); RDW 13.8 % (11.6-15.6); WHITE BLOOD COUNT 5.8 K/mm3 (4.0-10.0)
[2019-04-15] MEDS: INSULIN (NOVOLOG MIX 70/30) 100 UNITS/ML MDV SQ SCH ×2 (06:46→17:46)
[2019-04-15 07:04] LABS: BLOOD UREA NITROGEN 20.6 mg/dL (7-18); CALCIUM 8.1 mg/dL (8.5-10.1); CREATININE 0.9 mg/dL (0.55-1.3); POTASSIUM 3.9 mmol/L (3.5-5.1)
[2019-04-15] MEDS: ASPIRIN COATED 81 MG TABLET.EC PO SCH (09:56)
[2019-04-15] MEDS: LISINOPRIL 5 MG TABLET (FP) PO SCH (09:56)
[2019-04-15] MEDS: metoPROLOL SUCCINATE 25 MG TAB.SR.24H (FP) PO SCH (09:57)
[2019-04-15] MEDS: SODIUM CHLORIDE 0.45% 1,000 ML IV SCH (17:51)
[2019-04-15] MEDS ORDERED: LISINOPRIL 5 MG TABLET (FP) PO ONE (18:00)
[2019-04-16 05:03] VITALS: PULSE 68
[2019-04-16 06:36] VITALS: TEMP 98.2
[2019-04-16] MEDS: INSULIN (NOVOLOG MIX 70/30) 100 UNITS/ML MDV SQ SCH (06:36)
[2019-04-16] MEDS: LISINOPRIL 5 MG TABLET (FP) PO SCH ×2 (06:37→09:08)
--- NOTE | 2019-04-16 08:26 | CON.GI ---
Consult Consult Specialty:: GI Referred by:: Dr Fer Villanueva Reason for Consultation:: Nausea, Vomiting, Diarrhea - History of Present Illness History of Present Illness: Patient seen last Tuesday. She denies abdominal pain nausea and diarrhea. This has resolved. - History Source History Provided By: Medical Record Limitations to Obtaining History: Language Barrier - Past Medical History Cardio/Vascular: Yes: HTN, Hyperlipdemia Pulmonary: Yes: COPD Gastrointestinal: Yes: Other (lap choly) Musculoskeletal: Yes: Bursitis, Osteoarthritis Endocrine: Yes: Diabetes Mellitus - Past Surgical History Past Surgical History: Yes: Cholecystectomy - Alcohol/Substance Use Hx Alcohol Use: No - Smoking History Smoking history: Never smoked Have you smoked in the past 12 months: No - Social History ADL: Independent History of Recent Travel: No Home Medications - Allergies Allergies/Adverse Reactions: Allergies Allergy/AdvReac Type Severity Reaction Status Date / Time No Known Allergies Allergy Verified 04/12/19 15:29 - Home Medications Home Medications: Ambulatory Orders Atorvastatin Ca [Lipitor] 20 mg PO HS 10/04/18 Insulin (Novolog 70/30) [Novolog Mix 70/30 Vial] 20 ml SQ BID 10/04/18 Lisinopril [Zestril] 2.5 mg PO DAILY 10/04/18 Meclizine HCl 12.5 mg PO DAILY 10/04/18 Montelukast Sodium [Singulair] 10 mg PO DAILY 10/04/18 Cetirizine HCl 10 mg PO DAILY 04/12/19 Family Disease History - Family Disease History Family Disease History: Diabetes: Brother Physical Exam-GI Vital Signs: Vital Signs Temperature 98.2 F 04/16/19 06:00 Pulse Rate 68 04/16/19 06:00 Respiratory Rate 20 04/16/19 06:00 Blood Pressure 195/96 H 04/16/19 06:00 O2 Sat by Pulse Oximetry (%) 95 04/15/19 20:36 Constitutional: Yes: No Distress, Calm Eyes: Yes: Conjunctiva Clear HENT: Yes: Atraumatic Cardiovascular: Yes: Regular Rate and Rhythm Respiratory: Yes: Regular, CTA Bilaterally Gastrointestinal Inspection: Yes: WNL ...Auscultate: Yes: Normoactive Bowel Sounds. No: Hyperactive Bowel Sounds, Hypoactive Bowel Sounds, No Bowel Sounds, Other ...Palpate: Yes: Soft, Tenderness (RUQ). No: Firm/Rigid, Guarding, Hepatomegaly , Mass, Pulsatile Mass, Splenomegaly, Tenderness, Epigastium, Tenderness, Rebound, Other ...Percussion: Yes: Tympanitic. No: Dullness, Fluid Wave, Other Neurological: Yes: Alert Psychiatric: Yes: Alert Labs: CBC, BMP 04/15/19 05:25 04/15/19 05:25 Active Medications Generic Name Dose Route Start Last Admin Trade Name Freq PRN Reason Stop Dose Admin Acetaminophen 1,000 mg 04/13/19 11:01 04/13/19 11:52 Ofirmev Injection - IVPB 04/17/19 11:00 1,000 mg Q6H PRN Administration ELEVATED BLOOD SUGAR Acetaminophen 650 mg 04/13/19 15:28 04/15/19 02:00 Tylenol - PO 650 mg Q6H PRN Administration PAIN GREATER THAN 5 (6-10) Aspirin 81 mg 04/14/19 10:00 04/15/19 09:56 Ecotrin - PO 81 mg DAILY [facility] Administration Metronidazole 500 mg in 100 mls @ 100 mls/hr 04/13/19 18:00 04/16/19 04:51 Flagyl 500mg Premixed Ivpb - IVPB 04/17/19 23:59 100 mls/hr Q8H-IV [facility] Administration Sodium Chloride 1,000 mls @ 50 mls/hr 04/13/19 15:30 04/15/19 17:51 1/2 Normal Saline IV 50 mls/hr ASDIR [facility] Administration Insulin Aspart 25 units 04/13/19 16:30 04/16/19 06:36 Novolog Mix 70/30 Vial SQ Not Given BIDAC [facility] Lisinopril 5 mg 04/14/19 10:00 04/16/19 06:37 Prinivil PO 5 mg DAILY [facility] Administration Meclizine HCl 12.5 mg 04/14/19 12:28 Antivert - PO TID PRN [facility] Metoprolol Succinate 25 mg 04/13/19 15:30 04/15/19 09:57 Toprol Xl - PO 25 mg DAILY [facility] Administration Imaging - Results Cat Scan: Report Reviewed Problem List - Problems (1) Abdominal pain Assessment/Plan: r/o secondary to resolving gastroenteritis R> advance diet observe for further GI symtoms Code(s): R10.9 - UNSPECIFIED ABDOMINAL PAIN
[2019-04-16] MEDS: metoPROLOL SUCCINATE 25 MG TAB.SR.24H (FP) PO SCH (09:10)
[2019-04-16] MEDS: ASPIRIN COATED 81 MG TABLET.EC PO SCH (09:10)
--- NOTE | 2019-04-16 10:20 | DS ---
Physical Examination Vital Signs: Vital Signs Temperature 98.2 F 04/16/19 06:00 Pulse Rate 68 04/16/19 06:00 Respiratory Rate 20 04/16/19 06:00 Blood Pressure 195/96 H 04/16/19 06:00 O2 Sat by Pulse Oximetry (%) 95 04/15/19 20:36 Constitutional: Yes: Well Nourished, No Distress Eyes: Yes: WNL HENT: Yes: WNL Neck: Yes: WNL Cardiovascular: Yes: WNL Respiratory: Yes: WNL Gastrointestinal: Yes: WNL ...Rectal Exam: Yes: Deferred Renal/: Yes: WNL Breast(s): Yes: WNL Musculoskeletal: Yes: WNL Extremities: Yes: WNL Edema: No Peripheral Pulses WNL: Yes Integumentary: Yes: WNL Neurological: Yes: WNL ...Motor Strength: WNL Psychiatric: Yes: WNL Labs: CBC, BMP 04/15/19 05:25 04/15/19 05:25 Discharge Summary Reason For Visit: TYPE2 DIABETES MELLITUS W/HYPERGLYCEMIA Current Active Problems Abdominal pain (Acute) Dehydration (Acute) Hyperglycemia due to type 2 diabetes mellitus (Acute) Hypertension (Acute) Pre-syncope (Acute) Condition: Fair - Instructions Diet, Activity, Other Instructions: cont aii tx as is appt w ca [id number] d/c today Disposition: HOME - Home Medications Comprehensive Discharge Medication List: Ambulatory Orders Atorvastatin Ca [Lipitor] 20 mg PO HS 10/04/18 Insulin (Novolog 70/30) [Novolog Mix 70/30 Vial] 20 ml SQ BID 10/04/18 Lisinopril [Zestril] 2.5 mg PO DAILY 10/04/18 Meclizine HCl 12.5 mg PO DAILY 10/04/18 Montelukast Sodium [Singulair] 10 mg PO DAILY 10/04/18 Cetirizine HCl 10 mg PO DAILY 04/12/19
[2019-04-16 11:50] VITALS: BP 150/47
[2019-04-17] MEDS ORDERED: LISINOPRIL 10 MG TABLET (FP) PO SCH (10:00)
--- NOTE | 2019-04-17 14:57 | EKG ---
Test Reason : Blood Pressure : / mmHG Vent. Rate : 062 BPM Atrial Rate : 062 BPM P-R Int : 192 ms QRS Dur : 074 ms QT Int : 414 ms P-R-T Axes : 061 -32 085 degrees QTc Int : 420 ms NORMAL SINUS RHYTHM LEFT AXIS DEVIATION MINIMAL VOLTAGE CRITERIA FOR LVH, MAY BE NORMAL VARIANT NONSPECIFIC T WAVE ABNORMALITY ABNORMAL ECG WHEN COMPARED WITH ECG OF 12-APR-2019 16:36, NO SIGNIFICANT CHANGE WAS FOUND Confirmed by MD HETAL, SUELLEN ([id number]) on 04/17/2019 2:57:24 PM Referred By: Confirmed By:SUELLEN FONG MD
== END 2019-04-16 15:12 | disposition home or self-care (01) | DRG 638 ==
LOC: JER 15:15 → JERBED 20:48 → J4W 04-13 14:33
PROVIDERS: ADMIT Family Medicine; ATTEND Family Medicine
DX: E11.65 Type 2 diabetes mellitus with hyperglycemia (principal); N17.9 Acute kidney failure, unspecified; K52.9 Noninfective gastroenteritis and colitis, unspecified; E86.0 Dehydration; R55 Syncope and collapse; I10 Essential (primary) hypertension; E78.5 Hyperlipidemia, unspecified
CPT/HCPCS: 36415; 71046-TC-FY; 74176-TC; 80048; 80053; 81003; 82150; 82962; 83036; 83690; 83735; 84378; 84443; 84484; 85025; 87040; 87086; 93005; 93010; 97116-GP; 97161-GP; 99285-25; J0131; J7030